=== PATIENT | male | born 1995 | race Caucasian/White ===

== ENCOUNTER 2022-12-05 20:49 | Emergency (ER) | payer OTHER ==
[2022-12-05 20:54] VITALS: BP 142/78; PULSE 77; RESP 18; TEMP 97.8; BMI 45.4
[2022-12-05] MEDS ORDERED: AMOXICILLIN 500 MG CAPSULE (FP) PO ONE (22:14)
[2022-12-05] MEDS ORDERED: IBUPROFEN 400 MG TABLET (FP) PO ONE ×2 (22:15→22:16)
[2022-12-05] MEDS ORDERED: AMOXICILLIN 250 MG CAPSULE ONE (22:16)
== END 2022-12-05 22:29 | disposition home or self-care (01) ==
LOC: JERFT 20:49
DX: R07.0 Pain in throat (principal); R05.9 Cough, unspecified; R50.9 Fever, unspecified; R59.0 Localized enlarged lymph nodes; J02.8 Acute pharyngitis due to other specified organisms
CPT/HCPCS: 99283-25